=== PATIENT | female | born 1995 | race African-American/Black ===

== ENCOUNTER 2016-11-27 20:33 | Inpatient (IN) | payer MEDICAID ==
[2016-11-27 21:11] LABS: APPEARANCE,URINE CLOUDY; BILIRUBIN,URINE NEGATIVE (NEGATIVE); GLUCOSE, URINE NEGATIVE (NEGATIVE); KETONES,URINE NEGATIVE (NEGATIVE); LEUKOCYTE ESTERASE,URINE TRACE (NEGATIVE); NITRITE,URINE NEGATIVE (NEGATIVE); PROTEIN,URINE NEGATIVE (NEGATIVE); UROBILINOGEN,URINE NEGATIVE mg/dL (<2.0)
[2016-11-27 21:28] LABS: URINE BARBITURATES SCREEN NEGATIVE; URINE METHADONE SCREEN NEGATIVE; URINE OPIATES LOW NEGATIVE; URINE PHENCYCLIDINE SCREEN NEGATIVE
[2016-11-27] MEDS ORDERED: OXYTOCIN/NORMAL SALINE 20 UNIT/1,000 ML RTUINJ ONE (21:34)
[2016-11-27] MEDS ORDERED: MISOPROSTOL 0.2 MG TABLET ONE (21:34)
[2016-11-27] MEDS ORDERED: EPHEDRINE SULFATE INJ 50 MG/1 ML AMPULE ONE (21:34)
[2016-11-27] MEDS ORDERED: BUPIVACAINE HCL 0.25 % INJ/PF (2.5 MG/1 ML) 30 ML VIAL ONE (21:34)
[2016-11-27] MEDS ORDERED: FENTANYL/BUPIVACAINE/NS/PF 200 MCG/100 ML RTUINJ EPI ONE (21:34)
[2016-11-27] MEDS ORDERED: LIDOCAINE 1% INJ-PF (10 MG/ML) 30 ML SDV ONE (21:34)
[2016-11-27] MEDS ORDERED: FENTANYL CITRATE INJ/PF 100 MCG/2 ML AMPUL ONE (21:35)
[2016-11-27] MEDS ORDERED: PHENYLEPHRINE HCL INJ/PF 10 MG/1 ML SDV ONE (21:35)
[2016-11-27 21:54] LABS: ABSOLUTE LYMPHOCYTES (AUTO) 1.5 10^3/uL (0.5-4.7); ABSOLUTE MONOCYTES (AUTO) 0.9 10^3/uL (0.1-1.4); ABSOLUTE NEUT (AUTO) 6.4 10^3/uL (1.7-8.2); BASOPHILS % (AUTO) 0.2 % (0-2); EOSINOPHILS % (AUTO) 0.5 % (0-6); HEMOGLOBIN 10.7 g/dL (12.0-15.5); HGB HCT DIFFERENCE 2.1; LYMPHOCYTES % (AUTO) 17.2 % (13-45); MEAN CORPUSCULAR HEMOGLOBIN 31.7 pg (27.0-33.4); MEAN CORPUSCULAR HGB CONC 35.7 g/dL (32.0-36.0); MEAN CORPUSCULAR VOLUME 89 fl (80-97); MONOCYTES % (AUTO) 10.1 % (3-13); RED BLOOD COUNT 3.38 10^6/uL (3.72-5.28); RED CELL DISTRIBUTION WIDTH 13.5 % (11.5-14.0); WHITE BLOOD COUNT 8.9 10^3/uL (4.0-10.5)
[2016-11-27] MEDS ORDERED: RINGERS SOLUTION,LACTATED 1,000 ML IV PRN (22:56)
[2016-11-27] MEDS ORDERED: RINGERS SOLUTION,LACTATED 1,000 ML IV ONE (22:56)
[2016-11-28] MEDS ORDERED: DIPHENHYDRAMINE HCL 50 MG/ML VIAL ONE (03:27)
[2016-11-28] MEDS ORDERED: OXYTOCIN 10 UNIT/ML VIAL ONE (04:38)
[2016-11-28] MEDS ORDERED: GLYCERIN/WITCH HAZEL LEAF 1 EACH MED..PAD TP PRN (04:51)
[2016-11-28] MEDS ORDERED: BENZOCAINE/MENTHOL AEROSOL SPRAY 56 ML TOP PRN (04:51)
[2016-11-28] MEDS ORDERED: MEASLES,MUMPS&RUBELLA VACC/PF 0.5 ML VIAL SUBCUT PRN (04:51)
[2016-11-28] MEDS ORDERED: DIBUCAINE 1% OINTMENT 28 GM TP PRN (04:51)
[2016-11-28] MEDS ORDERED: DIPHENHYDRAMINE HCL 25 MG CAPSULE PO PRN (04:51)
[2016-11-28] MEDS ORDERED: PROMETHAZINE HCL INJ 25 MG/1 ML VIAL IV PRN (04:51)
[2016-11-28] MEDS ORDERED: ZOLPIDEM TARTRATE 5 MG TABLET PO PRN (04:51)
[2016-11-28] MEDS ORDERED: ACETAMINOPHEN WITH CODEINE #3 TABLET PO PRN (04:51)
[2016-11-28] MEDS ORDERED: MAGNESIUM HYDROXIDE SUSP 30 ML UDCUP PO PRN (04:51)
[2016-11-28] MEDS ORDERED: NA PHOS,M-B/NA PHOS,DI-BA (ADULT) 133 ML ENEMA PR PRN (04:51)
[2016-11-28] MEDS ORDERED: PROMETHAZINE HCL 25 MG SUPP.RECT PR PRN (04:51)
[2016-11-28] MEDS ORDERED: ACETAMINOPHEN 650 MG SUPP.RECT PR PRN (04:51)
[2016-11-28] MEDS ORDERED: DIPH/PERTUSS(ACELL)/TETANUS VAC/PF 0.5 ML SYR (>=10YO) IM PRN (04:51)
[2016-11-28] MEDS ORDERED: PSEUDOEPHEDRINE HCL 30 MG TABLET PO PRN (04:51)
[2016-11-28] MEDS ORDERED: PROMETHAZINE HCL 25 MG TABLET PO PRN (04:51)
--- NOTE | 2016-11-28 06:34 | Admission Physical ---
Datetime Report Generated by CPN: 11/28/2016 06:34 CURRENT ADMISSION Chief Complaint: Uterine Contractions Indication for Induction: Not Applicable Admit Plan: Admit to Unit; Initiate Labor Protocol ALLERGIES Medication Allergies: Yes Medication Allergies: Penicillins (11/27/2016) Medication Allergies: pcn-rash Latex: No Latex Allergies Food Allergies: none Environmental Allergies: none OBSTETRICAL HISTORY EDC: 12/02/2016 00:00 : 2 Para: 1 Term: 1 : 0 SAB: 0 IAB: 0 Ectopic: 0 Livin Cesareans: 0 VBACs: 0 Multiple Births: 0 Gestational Diabetes: No Rh Sensitization: No Incompetent Cervix: No MARGARITA: No Infertility: No ART Treatment: No Uterine Anomaly: No IUGR: No Hx Previous C/S: No Macrosomia: No Hx Loss/Stillborn: No PIH: No Hx : No Placenta Previa/Abruption: No Depression/PP Depression: No PTL/PROM: No Post Hemorrhage: No Current Procedures: Ultrasound Obstetrical History Comments: 1st 2012 pre-e 2nd 2016- no problems SEE RECORDS Alcohol: No Marijuana : No Cocaine: No Other Illicit Drugs: No Cigarettes: Smoker, Current Status Unknown. 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 Heart Disease: No Hosp/Surgery: No Autoimmune Disorder: No Anesthetic Complications: No Kidney Disease: No Abnormal Pap Smear: No Neuro/Epilepsy: No Psychiatric Disorders: Yes Other Medical Diseases: No Hepatitis/Liver Disease: No Significant Family History: No Varicosities/Phlebitis: No Trauma/Violence : No Thyroid Dysfunction: No Medical History Comments: Dx bipolar-previously on Seroquel; INFECTIOUS HISTORY Gonorrhea: No Genital Herpes: Yes Chlamydia: Yes Tuberculosis: No Syphilis: No Hepatitis: No HIV/AIDS Exposure: No Rash or Viral Illness: No HPV: No Infectious History Comments: HSV confirmed with lab testing-pt denies having any outbreaks; Hx: Chlamydia-2010 PHYSICAL EXAM General: Normal HEENT: Normal Neurologic: Normal Thyroid: Deferred Heart: Normal Lungs: Normal Breast: Deferred Back: Normal Abdomen: Normal Genitourinary Exam: Normal Extremities: Normal DTRs: Normal Pelvic Type: Adequate Vital Signs: Reviewed; Within Normal Limits VAGINAL EXAM Dilatation: 6 Effacement: 80 Station: -1 MEMBRANES Membranes: Intact FETUS A EGA: 39.3 Monitoring: External US FHR- Baseline: 140 Variability: Moderate 6-25bpm Accelerations: 15X15 Decelerations: None FHR Category: Category I Presentation: Vertex PLANS FOR LABOR AND DELIVERY Labor and Delivery: None Pain Management: Epidural Feeding Preference: Breast Benefit of Breast Feed Discussed: Yes Circumcision: N/A INFORMED CONSENT Signature: with User ID: [email or web address]
--- NOTE | 2016-11-28 06:41 | Delivery Summary ---
Del Sum A-C Datetime Report Generated by CPN: 11/28/2016 06:41 DELIVERY PERSONNEL DELIVERY PERSONNEL: [phone] Delivery Doctor:: Cheko Galeas, DO Labor and Delivery Nurse:: Norah Ramirez RN Nursery Nurse:: Dena Gonzalez RN Hospital Superintendent/[employer]: Sauljasmina Dangel, [employer] MATERNAL INFORMATION Delivery Anesthesia: Epidural Medications After Delivery: Other-Please Comment Meds After Delivery Comment: Pitocin 20 Units IM in right thigh Estimated Blood Loss (ml): 250 Maternal Complications: None Provider Comments: of viable female in OP position Placenta deleivered spontaneous and intact with 3v cord Fundus firm after Cytotec 1000mcg LABOR SUMMARY EDC: 12/02/2016 00:00 No. Babies in Womb: 1 Attempted: No Labor Anesthesia: Epidural LABOR INFORMATION Reason for Induction: Not Applicable Onset of Labor: 11/27/2016 21:23 Complete Dilatation: 11/28/2016 03:01 Oxytocin: N/A Group B Beta Strep: Negative Antibiotics # of Doses: 0 Steroids Given: None Reason Steroids Not Administered: Not Applicable MEMBRANES Membranes Rupture Method: Spontaneous Rupture of Membranes: 11/28/2016 01:08 (Annotations: the forebag ruptured) Length of Rupture (hr): 3.40 Amniotic Fluid Color: Light Meconium Amniotic Fluid Amount: Large Amniotic Fluid Odor: Normal STAGES OF LABOR Stage 1 hr: 5 Stage 1 min: 38 Stage 2 hr: 1 Stage 2 min: 31 Stage 3 hr: 0 Stage 3 min: 3 Total Time in Labor hr: 7 Total Time in Labor min: 12 VAGINAL DELIVERY Episiotomy: None Laceration Extension: First Degree Laceration Type: Perineal Laceration Repair: Yes Laceration Repair Note: Repaired with 2-0 chromic in usual fashion with good hemostasis Sponge Count Correct: N/A Sharps Count Correct: Yes CSECTION DELIVERY Primary Indication: N/A Secondary Indication: N/A CSection Incidence: N/A Labor: N/A Elective: N/A CSection Incision: N/A BABY A INFORMATION Delivery Date/Time: 11/28/2016 04:32 Method of Delivery: Vaginal Born in Route : No : N/A Forceps: N/A Vacuum Extraction: N/A Shoulder Dystocia : No PRESENTATION/POSITION BABY A Presentation: Cephalic Cephalic Presentation: Vertex Vertex Position: Occipital Posterior Breech Presentation: N/A PLACENTA INFORMATION BABY A Placenta Delivery Time : 11/28/2016 04:35 Placenta Method of Delivery: Spontaneous Placenta Status: Delivered SCORES BABY A Heart Rate 1 min: >100 bpm Resp Effort 1 min: Good Cry Reflex Irritability 1 min: Cough or Sneeze or Pulls Away Muscle Tone 1 min: Active Motion Color 1 min: Blue/Pale Resuscitation Effort 1 min: Tactile Stimulation SCORE 1 MIN: 8 Heart Rate 5 min: >100 bpm Resp Effort 5 min: Good Cry Reflex Irritability 5 min: Cough or Sneeze or Pulls Away Muscle Tone 5 min: Active Motion Color 5 min: Body [place], Extremities Blue Resuscitation Effort 5 min: Tactile Stimulation SCORE 5 MIN: 9 INFORMATION BABY A Gestational Age at Delivery: 39.3 Gestational Status: Full Term- 39- 40.6 Weeks Outcome : Liveborn Condition : Stable Sex: Female IDENTIFICATION BABY A Infant Verification Date/Time: 11/28/2016 04:38 ID Band Number: [id number] Mother's Name Verified: Yes RN Verifying Infant: S. Lattibeaudeir, RN _ J. Field, RN WEIGHT/LENGTH BABY A Birthweight (gm): 3250 Infant Weight (lb): 7 Weight (oz): 3 Length (in): 20.50 Infant Length (cm): 52.07 CORD INFORMATION BABY A No. Cord Vessels: 3 Nuchal Cord : N/A Cord Blood Taken: Yes-For Storage (Mom's Blood type +) Suction: Mouth; Nose ASSESSMENT BABY A Infant Complications: Meconium Complications- Other: Mother given Benadryl 25 IVP at 0332 Physical Findings at Delivery: Within Normal Limits Infant Respirations: Appears Normal Skin to Skin: Yes Skin to Skin Time (min): 30 Medical Appointment Scheduler/ALS Called : No Care By: Ihsan Gonzalez RN Transferred To: Remains with Mother BABY B INFORMATION : N/A SIGNATURES Signature: with User ID: [email or web address]
[2016-11-28] MEDS: IBUPROFEN 800 MG TABLET PO SCH ×3 (06:42→21:08)
--- NOTE | 2016-11-28 08:37 | PDOC PROGRESS REPORT ---
Subjective-OB Subjective: Post Delivery Day: 20 year old. Denies any needs at this time Physical Exam (OB) Vital Signs: Temp Pulse Resp BP Pulse Ox 98.9 F 73 16 137/86 H 100 11/28/16 07:19 11/28/16 07:19 11/28/16 07:19 11/28/16 07:19 11/28/16 07:19 Intake & Output 11/27/16 11/28/16 11/29/16 06:59 06:59 06:59 Weight 95.75 kg - Lochia Lochia Amount: Small 10-25 ml Lochia Color: Rubra/Red - Abdomen Description: Soft, Round Hernia Present: No Bowel Sounds: Normoactive Flatus Presence: Present Stool: No Fundal Description: Firm, Midline Fundal Height: u/u - u/2 Objective-Diagnostic Laboratory: 11/27/16 21:41 11/27/16 11/27/16 11/27/16 20:48 21:41 21:41 WBC 8.9 RBC 3.38 L Hgb 10.7 L Hct 30.0 L MCV 89 MCH 31.7 MCHC 35.7 RDW 13.5 Plt Count 163 Seg Neutrophils % 72.0 Lymphocytes % 17.2 Monocytes % 10.1 Eosinophils % 0.5 Basophils % 0.2 Absolute Neutrophils 6.4 Absolute Lymphocytes 1.5 Absolute Monocytes 0.9 Absolute Eosinophils 0.0 Absolute Basophils 0.0 Urine Color YELLOW Urine Appearance CLOUDY Urine pH 6.0 Ur Specific [place] 1.010 Urine Protein NEGATIVE Urine Glucose (UA) NEGATIVE Urine Ketones NEGATIVE Urine Blood NEGATIVE Urine Nitrite NEGATIVE Ur Leukocyte Esterase TRACE H Blood Type B POSITIVE Antibody Screen NEGATIVE
[2016-11-28] MEDS: FERROUS SULFATE 325 MG TABLET PO SCH ×2 (09:53→17:59)
[2016-11-28] MEDS: PRENATAL VITAMIN W-O CA NO5/FE FUMARATE/FA CAPSULE PO SCH (09:54)
[2016-11-28] MEDS: DOCUSATE SODIUM 100 MG CAPSULE PO SCH ×2 (09:54→18:00)
[2016-11-28] MEDS: ACETAMINOPHEN WITH CODEINE #3 TABLET PO PRN ×3 (09:54→20:04)
[2016-11-28] MEDS: SENNOSIDES/DOCUSATE 8.6-50 MG 1 EACH TABLET PO SCH (09:54)
[2016-11-28] MEDS: FAMOTIDINE 20 MG TABLET PO SCH ×2 (09:55→21:08)
[2016-11-29] MEDS: ACETAMINOPHEN WITH CODEINE #3 TABLET PO PRN ×4 (00:58→19:46)
[2016-11-29] MEDS: IBUPROFEN 800 MG TABLET PO SCH ×3 (06:00→21:40)
[2016-11-29 07:40] LABS: HEMATOCRIT 30.7 % (36.0-47.0); HEMOGLOBIN 10.9 g/dL (12.0-15.5); MEAN CORPUSCULAR HEMOGLOBIN 31.8 pg (27.0-33.4); MEAN CORPUSCULAR HGB CONC 35.6 g/dL (32.0-36.0); MEAN CORPUSCULAR VOLUME 89 fl (80-97); RED BLOOD COUNT 3.44 10^6/uL (3.72-5.28); RED CELL DISTRIBUTION WIDTH 13.5 % (11.5-14.0); WHITE BLOOD COUNT 6.5 10^3/uL (4.0-10.5)
--- NOTE | 2016-11-29 08:45 | PDOC PROGRESS REPORT ---
Subjective-OB Subjective: Post Delivery Day: 20 year old. Denies any needs at this time Physical Exam (OB) Vital Signs: Temp Pulse Resp BP Pulse Ox 98.0 F 80 16 122/77 100 11/29/16 08:01 11/29/16 08:01 11/29/16 08:01 11/29/16 08:01 11/29/16 08:01 Intake & Output 11/28/16 11/29/16 11/30/16 06:59 06:59 06:59 Intake Total 340 Balance 340 Weight 95.75 kg - Lochia Lochia Amount: Small 10-25 ml Lochia Color: Rubra/Red - Abdomen Description: Soft, Round Hernia Present: No Bowel Sounds: Normoactive Flatus Presence: Present Stool: No Fundal Description: Firm, Midline Fundal Height: u/u - u/2 Objective-Diagnostic Laboratory: 11/29/16 07:15 11/29/16 07:15 WBC 6.5 RBC 3.44 L Hgb 10.9 L Hct 30.7 L MCV 89 MCH 31.8 MCHC 35.6 RDW 13.5 Plt Count 158
[2016-11-29] MEDS: FERROUS SULFATE 325 MG TABLET PO SCH ×2 (11:16→17:32)
[2016-11-29] MEDS: DOCUSATE SODIUM 100 MG CAPSULE PO SCH ×2 (11:16→17:32)
[2016-11-29] MEDS: PRENATAL VITAMIN W-O CA NO5/FE FUMARATE/FA CAPSULE PO SCH (11:16)
[2016-11-29] MEDS: SENNOSIDES/DOCUSATE 8.6-50 MG 1 EACH TABLET PO SCH (11:16)
[2016-11-29] MEDS: FAMOTIDINE 20 MG TABLET PO SCH ×2 (11:17→21:40)
[2016-11-30] MEDS: ACETAMINOPHEN WITH CODEINE #3 TABLET PO PRN (02:50)
[2016-11-30] MEDS: IBUPROFEN 800 MG TABLET PO SCH (05:10)
--- NOTE | 2016-11-30 09:08 | PDOC DISCHARGE SUMMARY ---
Final Diagnosis Discharge Date: 11/30/16 - Final Diagnosis (1) Delivery normal Is this a current diagnosis for this admission?: Yes (2) History of bipolar disorder Is this a current diagnosis for this admission?: Yes (3) Insufficient antepartum care Is this a current diagnosis for this admission?: Yes Discharge Data - Discharge Medication Home Medications: Vit/Iron Fumarate/FA [ Tablet] 1 tab PO DAILY 11/27/16 Docusate Sodium [Colace 100 mg Capsule] 100 mg PO BID #60 capsule 11/30/16 Ferrous Sulfate [Feosol 325 mg Tablet] 325 mg PO BID #60 tablet 11/30/16 Ibuprofen [Motrin 800 mg Tablet] 800 mg PO Q8 #60 tablet 11/30/16 Gestational Age: 39.3 Reason(s) for Admission: Onset of Labor Procedures: NST Intrapartum Procedure(s): Spontaneous Vaginal Delivery Complication(s): Laceration-Perineal Laceration-Degree: 1st - Shannon Data Baby 1 Female at 1 minute: 8 at 5 minutes: 9 Weight: 3250 kg Home with Mother: Yes Complications: No - Diagnosis Test Laboratory: Temp Pulse Resp BP Pulse Ox 98.4 F 79 16 123/75 100 11/30/16 07:31 11/30/16 07:31 11/30/16 07:31 11/30/16 07:31 11/30/16 07:31 11/27/16 11/27/16 11/29/16 20:48 21:41 07:15 RBC 3.38 L 3.44 L Hgb 10.7 L 10.9 L Hct 30.0 L 30.7 L Urine Opiates Screen NEGATIVE - Discharge information/Instructions Discharge Activity: Activity As Tolerated, Pelvic Rest, No tub bath Discharge Diet: Regular Disposition: HOME, SELF-CARE Follow up with: [facility] in: 4, Weeks
[2016-11-30 09:10] VITALS: BP 109/55
[2016-11-30] MEDS: FAMOTIDINE 20 MG TABLET PO SCH (09:28)
[2016-11-30] MEDS: PRENATAL VITAMIN W-O CA NO5/FE FUMARATE/FA CAPSULE PO SCH (09:29)
[2016-11-30] MEDS: SENNOSIDES/DOCUSATE 8.6-50 MG 1 EACH TABLET PO SCH (09:29)
[2016-11-30] MEDS: FERROUS SULFATE 325 MG TABLET PO SCH (09:29)
[2016-11-30] MEDS: DOCUSATE SODIUM 100 MG CAPSULE PO SCH (09:29)
== END 2016-11-30 11:37 | disposition home or self-care (01) | DRG 775 ==
LOC: LC 20:33 → LR 21:27 → 2S 11-28 06:32
PROVIDERS: ADMIT Obstetrics & Gynecology; ATTEND Obstetrics & Gynecology
PROC: 10E0XZZ Delivery of Products of Conception, External Approach (ICD-10-PCS; principal; 2016-11-28)
PROC: 0HQ9XZZ Repair Perineum Skin, External Approach (ICD-10-PCS; 2016-11-28)
PROC: 3E0234Z Introduction of Serum, Toxoid and Vaccine into Muscle, Percutaneous Approach (ICD-10-PCS; 2016-11-30)
DX: O13.4 Gestational [pregnancy-induced] hypertension without significant proteinuria, complicating childbirth (principal); O99.334 Smoking (tobacco) complicating childbirth; F17.210 Nicotine dependence, cigarettes, uncomplicated; O70.0 First degree perineal laceration during delivery; O77.0 Labor and delivery complicated by meconium in amniotic fluid; O99.344 Other mental disorders complicating childbirth; F31.9 Bipolar disorder, unspecified; O09.33 Supervision of pregnancy with insufficient antenatal care, third trimester; Z3A.39 39 weeks gestation of pregnancy; Z37.0 Single live birth; Z23 Encounter for immunization
CPT/HCPCS: 36415; 80307; 81005; 85025; 85027; 86592; 86850; 86900; 86901; 90715; G0480; J1200; J2370; J2590; J3010; J3490